=== PATIENT | female | born 1955 | race African-American/Black ===

== ENCOUNTER 2018-05-05 07:55 | Emergency (ER) | payer MEDICAID ==
[~2018-05-05] VITALS: Ht 162.6 cm; Wt 60.0 kg
[2018-05-05] MEDS ORDERED: LISI2.5T47 PO (08:00)
[2018-05-05] MEDS ORDERED: SODIUM CHLORIDE 0.9% 1,000 ML IV ONE (08:24)
[2018-05-05 08:51] LABS: BASOPHILS % 0.6 % (0.0-2.0); HEMOGLOBIN. 12.2 g/dL (12.0-16.0); LYMPHOCYTES % 28.5 % (20.0-50.0); MEAN CORPUSCULAR HEMOGLOBIN 31.8 pg (28.0-32.0); MEAN CORPUSCULAR VOLUME 96.4 fL (81.0-99.0); MEAN PLATELET VOLUME 9.4 fl (7.4-10.4); MONOCYTES % 2.8 % (2.0-8.0); NEUTROPHILS % 67.1 % (40.0-76.0); PLATELET 246 x1000/uL (130-400); RED BLOOD CELL COUNT 3.84 mill/uL (4.2-5.4); RED CELL DISTRIBUTION WIDTH 14.2 % (11.6-14.6)
[2018-05-05 08:59] LABS: CHLORIDE 107 mEq/L (98-107)
[2018-05-05 09:03] LABS: ETHANOL BLOOD 287 mg/dL
[2018-05-05] MEDS ORDERED: LORAZEPAM 2MG/ML CPJ IV ONE (11:00)
[2018-05-05] MEDS ORDERED: ONDANSETRON HCL 4MG/2ML INJ IV NR (14:58)
[2018-05-05] MEDS ORDERED: MORPHINE SULFATE 4 MG/ML CPJ (NOT FOR IM USE) IV NR (14:58)
[2018-05-05 16:40] VITALS: BP 187/93
== END 2018-05-05 18:22 | disposition short-term general hospital (02) ==
LOC: ER 07:55
DX: M48.02 Spinal stenosis, cervical region (principal); G95.29 Other cord compression; M79.602 Pain in left arm; M79.601 Pain in right arm; R51 Headache; I10 Essential (primary) hypertension; M06.9 Rheumatoid arthritis, unspecified; F10.129 Alcohol abuse with intoxication, unspecified; Z88.1 Allergy status to other antibiotic agents; W01.0XXA Fall on same level from slipping, tripping and stumbling without subsequent striking against object, initial encounter; Y93.89 Activity, other specified; Y92.018 Other place in single-family (private) house as the place of occurrence of the external cause
CPT/HCPCS: 36415; 70450; 70551; 72125; 72141; 73060; 73130; 80053; 83735; 83880; 84484; 85025; 93005; 96361; 96374; 96375; 99291; G0482; J2060; J2270; J2405; J7030

== ENCOUNTER 2022-12-13 17:58 | Inpatient (IN) | payer MEDICAID, OTHER ==
[~2022-12-13] VITALS: Ht 165.1 cm; Wt 53.2 kg
[2022-12-13] MEDS: LOSARTAN POTASSIUM 25 MG TABLET PO SCH (01:00)
[~2022-12-13 17:58] MED LIST: LISI2.5T47 PO
[2022-12-13] MEDS ORDERED: SODIUM CHLORIDE 0.9% 1000ML BAG (SEPSIS BOLUS) IV ONE (18:45)
[2022-12-13] MEDS ORDERED: DEXTROSE 50% WATER 50ML SYRINGE IV ONE (18:45)
[2022-12-13 19:18] LABS: BASOPHILS % 0.4 % (0.0-2.0); HEMOGLOBIN. 11.4 g/dL (12.0-16.0); MEAN CORPUSCULAR HEMOGLOBIN 34.3 pg (28.0-32.0); MEAN CORPUSCULAR VOLUME 105.3 fL (81.0-99.0); MEAN PLATELET VOLUME 9.6 fl (7.4-10.4); MONOCYTES % 3.6 % (2.0-8.0); PLATELET 169 x1000/uL (130-400); RED BLOOD CELL COUNT 3.32 mill/uL (4.2-5.4); RED CELL DISTRIBUTION WIDTH 17.2 % (11.6-14.6)
[2022-12-13 19:27] LABS: CHLORIDE 103 mEq/L (98-107)
[2022-12-13] MEDS ORDERED: PIPERACILLIN/TAZ 3.375G PREMIX 50 ML IV ONE (20:00)
[2022-12-13] MEDS ORDERED: VANCOMYCIN 1G PREMIX 200 ML IV ONE (20:00)
[2022-12-13 22:11] LABS: CLARITY URINE CLEAR (CLEAR); COLOR URINE YELLOW (YELLOW); KETONES URINE 1+ (NEGATIVE); LEUKOCYTE ESTERASE URINE NEGATIVE (NEGATIVE); NITRITE URINE NEGATIVE (NEGATIVE); OCCULT BLOOD URINE TRACE (NEGATIVE); PH URINE 5.5 (4.5-8.0); PROTEIN URINE 3+ (NEGATIVE); SPECIFIC GRAVITY URINE 1.014 (1.005-1.030); UROBILINOGEN URINE 0.2 E.U./dL (0.2-1.0)
[2022-12-13] MEDS ORDERED: AMLODIPINE 5MG TABLET PO ONE (22:15)
[2022-12-13] MEDS ORDERED: AMLODIPINE 5MG TABLET PO SCH (22:45)
[2022-12-13] MEDS ORDERED: ONDANSETRON HCL 4MG/2ML INJ IV PRN (22:45)
[2022-12-13] MEDS ORDERED: ACETAMINOPHEN 325MG TABLET PO PRN ×2 (22:45)
[2022-12-13] MEDS ORDERED: MAGNESIUM/ALUMINUM HYDROXIDE/SIMETHICONE 30ML UDC PO PRN (22:45)
[2022-12-13] MEDS ORDERED: IPRATROPIUM/ALBUTEROL 0.5-3(2.5)MG/3ML NEB HHN PRN (22:45)
[2022-12-13] MEDS ORDERED: CLONIDINE 0.1MG TABLET PO PRN (22:45)
[2022-12-13] MEDS ORDERED: LORAZEPAM 2MG/ML CPJ IV PRN (23:45)
[2022-12-13] MEDS ORDERED: FOLIC ACID 1 MG, THIAMINE HCL 100 MG, MVI, ADULT NO.1 10 ML in DEXTROSE 5% WATER 1,000 ML IV NR ×4 (23:59)
[2022-12-14] MEDS ORDERED: HYDRALAZINE 20MG/ML VIAL IV NR (00:45)
[2022-12-14 00:53] LABS: T4 FREE 0.81 ng/dL (0.76-1.46)
[2022-12-14] MEDS: SODIUM CHLORIDE 0.9% 1,000 ML IV SCH ×2 (02:35→14:56)
[2022-12-14 05:13] LABS: BASOPHILS % 0.2 % (0.0-2.0); EOSINOPHILS % 0.1 % (0.0-5.0); HEMATOCRIT. 30.5 % (36.0-48.0); HEMOGLOBIN. 10.2 g/dL (12.0-16.0); LYMPHOCYTES % 12.1 % (20.0-50.0); MEAN CORPUSCULAR HEMOGLOBIN 33.8 pg (28.0-32.0); MEAN CORPUSCULAR VOLUME 101.2 fL (81.0-99.0); MEAN PLATELET VOLUME 9.5 fl (7.4-10.4); MONOCYTES % 7.6 % (2.0-8.0); PLATELET 146 x1000/uL (130-400); RED BLOOD CELL COUNT 3.02 mill/uL (4.2-5.4); RED CELL DISTRIBUTION WIDTH 16.9 % (11.6-14.6)
[2022-12-14 05:21] LABS: CHLORIDE 104 mEq/L (98-107)
[2022-12-14 05:28] LABS: ETHANOL BLOOD < 10 mg/dL
[2022-12-14 05:43] LABS: D-DIMER 2.25 mg/L FEU (<0.50); INR 1.1; PROTHROMBIN TIME 11.8 sec (9.6-11.0)
[2022-12-14] MEDS: HYDRALAZINE 20MG/ML VIAL IV SCH ×3 (06:34→18:38)
[2022-12-14] MEDS: PIPERACILLIN/TAZOBACTAM 3.375 G in DEXTROSE 5% WATER 50 ML IV SCH ×3 (08:13→22:06)
[2022-12-14] MEDS: THIAMINE HCL 100MG TABLET PO SCH (11:20)
[2022-12-14] MEDS: LOSARTAN POTASSIUM 25 MG TABLET PO SCH (11:20)
[2022-12-14 11:44] LABS: *AMPHETAMINES SCREEN URINE NEGATIVE (NEGATIVE); *BARBITURATES SCREEN URINE NEGATIVE (NEGATIVE); *BENZODIAZEPINES SCREEN URINE NEGATIVE (NEGATIVE); *COCAINE SCREEN URINE NEGATIVE (NEGATIVE); CANNABINOID URINE SCREEN NEGATIVE (NEGATIVE); METHADONE URINE SCREEN NEGATIVE (NEGATIVE); OPIATES URINE SCREEN NEGATIVE (NEGATIVE); PHENCYCLIDINE URINE SCREEN NEGATIVE (NEGATIVE)
[2022-12-14 12:10] VITALS: BP 155/89
[2022-12-14 12:19] VITALS: BP 155/89
[2022-12-14] MEDS: ENOXAPARIN 40MG/0.4ML SYR SUBCUT SCH (13:28)
[2022-12-14 16:00] VITALS: BP 152/79
[2022-12-14 18:40] LABS: HEPATITIS B SURFACE ANTIGEN NEGATIVE
[2022-12-14 20:19] VITALS: BP 136/71
[2022-12-14] MEDS: FAMOTIDINE 20MG TABLET PO SCH (22:05)
[2022-12-14] MEDS: VANCOMYCIN 750MG PREMIX 150 ML IV SCH (22:06)
[2022-12-14] MEDS ORDERED: HYDROCODONE/ACETAMINOPHEN 5/325MG TABLET PO NR (23:15)
[2022-12-15] VITALS (14 sets, daily range): BP systolic 138–163; BP diastolic 73–90
[2022-12-15] MEDS: SODIUM CHLORIDE 0.9% 1,000 ML IV SCH ×2 (06:22→15:42)
[2022-12-15] MEDS: PIPERACILLIN/TAZOBACTAM 3.375 G in DEXTROSE 5% WATER 50 ML IV SCH ×2 (06:22→15:13)
[2022-12-15] MEDS: HYDRALAZINE 20MG/ML VIAL IV SCH ×4 (06:25→18:46)
[2022-12-15] MEDS: LOSARTAN POTASSIUM 25 MG TABLET PO SCH (08:35)
[2022-12-15] MEDS: THIAMINE HCL 100MG TABLET PO SCH (08:35)
[2022-12-15] MEDS: ENOXAPARIN 40MG/0.4ML SYR SUBCUT SCH (08:35)
[2022-12-15] MEDS ORDERED: ACETAMINOPHEN 325MG TABLET PO NR (20:15)
[2022-12-15] MEDS ORDERED: PREDNISONE 20MG TABLET PO NR (20:30)
[2022-12-15] MEDS ORDERED: ADENOSINE 3 MG/ML 2ML VIAL IV NR (20:59)
[2022-12-15] MEDS: FAMOTIDINE 20MG TABLET PO SCH (21:00)
[2022-12-15] MEDS ORDERED: METOPROLOL TARTRATE 5MG/5ML VIAL IV NR (21:27)
[2022-12-15] MEDS: VANCOMYCIN 750MG PREMIX 150 ML IV SCH (22:50)
[2022-12-16] VITALS (8 sets, daily range): BP systolic 127–163; BP diastolic 70–89
[2022-12-16] MEDS: PIPERACILLIN/TAZOBACTAM 3.375 G in DEXTROSE 5% WATER 50 ML IV SCH ×3 (00:02→15:07)
[2022-12-16] MEDS: HYDRALAZINE 20MG/ML VIAL IV SCH ×5 (00:03→23:44)
[2022-12-16] MEDS: SODIUM CHLORIDE 0.9% 1,000 ML IV SCH ×2 (05:23→17:25)
[2022-12-16] MEDS: THIAMINE HCL 100MG TABLET PO SCH (09:03)
[2022-12-16] MEDS: LOSARTAN POTASSIUM 25 MG TABLET PO SCH (09:03)
[2022-12-16] MEDS: ENOXAPARIN 40MG/0.4ML SYR SUBCUT SCH (09:03)
[2022-12-16] MEDS ORDERED: LORAZEPAM 2MG/ML CPJ IV PRN (10:30)
[2022-12-16] MEDS ORDERED: METOPROLOL TARTRATE 25MG TABLET PO NR (12:45)
[2022-12-16] MEDS: METHYLPREDNISOLONE SOD SUCC 125 MG/2 ML VIAL IV SCH ×2 (13:23→21:35)
[2022-12-16] MEDS ORDERED: CEFTRIAXONE 1,000 MG in DEXTROSE 5% WATER 50 ML IV SCH ×2 (16:00→20:00)
[2022-12-16] MEDS ORDERED: METOPROLOL TARTRATE 25MG TABLET PO SCH (21:00)
[2022-12-16] MEDS ORDERED: VANCOMYCIN 500MG PREMIX 100 ML IV SCH (22:00)
[2022-12-17 03:42] VITALS: BP 148/79
[2022-12-17] MEDS: METHYLPREDNISOLONE SOD SUCC 125 MG/2 ML VIAL IV SCH (06:23)
[2022-12-17] MEDS: HYDRALAZINE 20MG/ML VIAL IV SCH (06:24)
[2022-12-17] MEDS: SODIUM CHLORIDE 0.9% 1,000 ML IV SCH (06:34)
[2022-12-17 07:36] LABS: HEMATOCRIT. 26.6 % (36.0-48.0); HEMOGLOBIN. 8.8 g/dL (12.0-16.0); MEAN CORPUSCULAR HEMOGLOBIN 33.9 pg (28.0-32.0); MEAN CORPUSCULAR VOLUME 102.7 fL (81.0-99.0); PLATELET 161 x1000/uL (130-400); RED BLOOD CELL COUNT 2.59 mill/uL (4.2-5.4); RED CELL DISTRIBUTION WIDTH 16.7 % (11.6-14.6)
[2022-12-17] MEDS ORDERED: ENOXAPARIN 30MG/0.3ML SYR SUBCUT SCH (09:00)
[2022-12-17 16:02] LABS: PLATELET ESTIMATE NORMAL
[2022-12-17] MEDS ORDERED: FAMOTIDINE 20MG TABLET PO SCH (21:00)
== END 2022-12-17 09:15 | disposition left against medical advice (07) | DRG 871 ==
LOC: ER 17:58 → EDBEDREQ 22:23 → EDBEDREQTM 22:23 → MICUSO 12-14 00:19 → 3WST 12-14 11:57
PROVIDERS: ADMIT Internal Medicine; ATTEND Internal Medicine
DX: A41.9 Sepsis, unspecified organism (principal); G92.8 Other toxic encephalopathy; N17.0 Acute kidney failure with tubular necrosis; D53.9 Nutritional anemia, unspecified; E16.2 Hypoglycemia, unspecified; E86.0 Dehydration; I10 Essential (primary) hypertension; J44.9 Chronic obstructive pulmonary disease, unspecified; M19.90 Unspecified osteoarthritis, unspecified site; R74.01 Elevation of levels of liver transaminase levels; Z20.822 Contact with and (suspected) exposure to COVID-19; S30.0XXA Contusion of lower back and pelvis, initial encounter; Z53.29 Procedure and treatment not carried out because of patient's decision for other reasons; Z96.642 Presence of left artificial hip joint; Z88.1 Allergy status to other antibiotic agents; X58.XXXA Exposure to other specified factors, initial encounter; Y93.89 Activity, other specified; Y92.89 Other specified places as the place of occurrence of the external cause; Y99.8 Other external cause status
CPT/HCPCS: 36415; 70551; 71045; 76770; 80048; 80053; 80061; 80202; 80305; 80320; 81003; 82040; 82550; 82570; 82607; 82746; 82962; 83036; 83605; 83880; 84134; 84145; 84300; 84439; 84443; 84484; 85025; 85379; 85651; 86140; 86803; 87077; 87186; 87340; 87426; 93005; 93306; 93970; 97162; 99291; J0153; J0360; J0696; J1650; J2543; J2930; J3370; J3411; J3490; J7030; J7060; J7070; J7512; G0480